=== PATIENT | female | born 1935 | race Caucasian/White ===

== ENCOUNTER 2023-06-13 10:50 | Outpatient (AMB) | payer MEDICARE, MEDICAID, SELFPAY ==
--- NOTE | 2023-06-13 10:57 | HO.NEPHOV ---
HPI HPI Comments History of Present Illness Details Elderly woman with a history of hypertension and hyponatremia in the setting of aortic stenosis. 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 Today she has no specific complaints Vital Signs 06/13/23 10:59 Height 5 ft 1 in Weight 134 lb 8 oz BMI 25.4 BP 122/62 Blood Pressure Location Lt brachial Position Sitting Pulse 82 Pulse Source Pulse Oximeter Pulse Oximetry (%) 98 Oxygen Delivery Method Room Air Physical Exam Vital Signs: Last Vital Signs Pulse 82 06/13/23 10:59 BP 122/62 06/13/23 10:59 Pulse Ox 98 06/13/23 10:59 Oxygen Delivery Method Room Air 06/13/23 10:59 BMI result Body Mass Index 25.4 Const General: comfortable Nutritional Appearance: well nourished Orientation/consciousness: patient oriented x3 HEENT Head: No normal to inspection Mouth: moist mucous membranes Neck Neck: Yes supple and Yes no JVD Resp Auscultation: clear to auscultation bilaterally, no rales and rub present Cardio Jugular venous distension: no JVD Palpation: no palpable S3 and no palpable S4 Heart sounds: no rubs GI Palpation (GI): Soft to palpation and nontender Percussion: No Fluid wave present General: Yes no CVA tenderness Back/Spine/Pelvis Back: no CVA tenderness Skin General skin exam: no rashes or lesions noted Neuro General: patient oriented x3 Extrem General: Yes no pedal edema and No clubbing Assessment & Plan Assessment & Plan (1) Hyponatremia: Code(s): E87.1 - Hypo-osmolality and hyponatremia Plan Elderly woman with a history of hypertension and hyponatremia in the setting of aortic stenosis. Hyponatremia stands corrected. No further intervention is needed. If serum sodium drops less than 135 millimoles I would recommend PO water restriction. Blood pressure is well controlled therefore will continue the current antihypertensive regimen she is on a small dose of amlodipine. I agree with discontinuing the magnesium supplementation. I would also discontinue gabapentin 100 mg which does not seem to help her in any case. She is not sure why she has been taking this Orders: Orders Electrolytes 6 Months E87.1 - Hypo-osmolality and hyponatremia Blood Urea Nitrogen 6 Months E87.1 - Hypo-osmolality and hyponatremia Creatinine 6 Months E87.1 - Hypo-osmolality and hyponatremia Calcium 6 Months E87.1 - Hypo-osmolality and hyponatremia Coding Level of Care Code Est Pt Level 4 (30480) Diagnoses Hyponatremia E87.1 Results Reviewed Results Reviewed: Sodium 138 Creatinine 0. 6 as of February 2023 Nephrology Results: No Data to Display
[2023-06-13 10:59] VITALS: BP 122/62; PULSE 82; O2SAT 98; BMI 25.4
== END 2023-06-13 11:32 | disposition home or self-care (01) ==
PROVIDERS: Visit Provider Internal Medicine Hypertension Specialist
DX: E87.1 Hypo-osmolality and hyponatremia (principal)
CPT/HCPCS: 99214

== ENCOUNTER → 2023-06-13 10:50 | Outpatient (BNVA) | payer MEDICARE, MEDICAID, SELFPAY | PROVIDERS: Visit Provider Internal Medicine Hypertension Specialist | DX: E87.1 Hypo-osmolality and hyponatremia (principal) | CPT/HCPCS: 99212 ==